=== PATIENT | female | born 1990 | race Two or more races ===

== ENCOUNTER 2017-06-20 12:28 | Emergency (ER) | payer BC, MEDICAID ==
[~2017-06-20] VITALS: Ht 165.1 cm; Wt 69.4 kg
[2017-06-20 12:35] VITALS: BP_SYST 148
[2017-06-20] MEDS ORDERED: HYDROcodone/ACETAMIN 5-325 MG TAB (NORCO/ VICODIN) PO ONE (13:15)
[2017-06-20 14:47] VITALS: BP_SYST 124
== END 2017-06-20 15:17 | disposition home or self-care (01) ==
LOC: SED 12:28
DX: S20.219A Contusion of unspecified front wall of thorax, initial encounter (principal); S30.811A Abrasion of abdominal wall, initial encounter; R51 Headache; G43.909 Migraine, unspecified, not intractable, without status migrainosus; Z88.8 Allergy status to other drugs, medicaments and biological substances; V89.2XXA Person injured in unspecified motor-vehicle accident, traffic, initial encounter; Y93.89 Activity, other specified; Y92.410 Unspecified street and highway as the place of occurrence of the external cause; Y99.8 Other external cause status
CPT/HCPCS: 70450-TC; 71010; 99284